=== PATIENT | female | born 1985 | race Caucasian/White ===

== ENCOUNTER 2019-11-24 16:11 | Emergency (ER) | payer OTHER ==
[~2019-11-24] VITALS: Ht 167.6 cm
== END 2019-11-24 18:04 | disposition home or self-care (01) ==
LOC: ER 16:11
DX: B34.9 Viral infection, unspecified (principal)

== ENCOUNTER 2020-06-07 09:38 | Outpatient (CLI) | payer OTHER | END 2020-06-07 09:40 | disposition home or self-care (01) | LOC: TOM 09:38 | DX: R55 Syncope and collapse (principal); R51 Headache ==

== ENCOUNTER 2023-09-11 10:24 | Outpatient (CLI) | payer OTHER | END 2023-09-11 10:27 | disposition home or self-care (01) | LOC: RAD 10:24 | DX: M25.551 Pain in right hip (principal); M25.552 Pain in left hip ==

== ENCOUNTER 2023-11-14 08:15 | Outpatient (CLI) | payer OTHER | END 2023-11-14 08:27 | disposition home or self-care (01) | LOC: SONOGRAMA 08:15 | DX: D70.9 Neutropenia, unspecified (principal) ==

== ENCOUNTER 2023-11-19 08:27 | Outpatient (CLI) | payer OTHER | END 2023-11-19 08:31 | disposition home or self-care (01) | LOC: MAMO-SONO 08:27 | PROVIDERS: ATTEND Internal Medicine | DX: Z12.31 Encounter for screening mammogram for malignant neoplasm of breast (principal) ==

== ENCOUNTER 2024-10-28 07:47 | Outpatient (CLI) | payer OTHER | END 2024-10-28 07:55 | disposition home or self-care (01) | LOC: RAD 07:47 | PROVIDERS: ATTEND Physical Medicine & Rehabilitation | DX: M54.2 Cervicalgia (principal); M72.2 Plantar fascial fibromatosis ==

== ENCOUNTER 2024-11-24 09:19 | Outpatient (CLI) | payer OTHER | END 2024-11-24 09:22 | disposition home or self-care (01) | LOC: MRI 09:19 | PROVIDERS: ATTEND Physical Medicine & Rehabilitation Sports Medicine | DX: M54.2 Cervicalgia (principal); M54.12 Radiculopathy, cervical region | CPT/HCPCS: 72141 ==